=== PATIENT | male | born 1960 | race Two or more races ===

== ENCOUNTER 2022-07-18 21:01 | Inpatient (IN) | payer MEDICAID ==
[~2022-07-18] VITALS: Ht 175.3 cm; Wt 72.6 kg
--- NOTE | 2022-07-18 23:30 | NUR ---
MS RN NOTES PATIENT DIRECT ADMIT FROM [facility] RECEIVED REPORT FROM JEROME WILLIAMSON; PER CLAY, PATIENT IS STABLE FOR TRANSFER; VSS; UPON ARRIVAL TO UNIT VIA GURNEY; ACCOMPANIED BY 2 EMT; PATIENT A/0X4, HEBREW AND SYRIAC SPEAKER; ABLE TO VERBALIZE NEEDS; PER PATIENT, HE HAS HOME HEALTH NURSE AND SHE RECOMMENDED PATIENT BE SEEN IN ER FOR FURTHER EVALUATION OF BILATERAL FOOT ULCERS; PATIENT COMPLIED AND WENT TO ER EARLIER TODAY; BREATHING EVEN AND UNLABORED; NO SOB NOTED, NO DISTRESS NOTED; PATIENT TOLERATING ROOM AIR WELL; PATIENT DENIES PAIN; SKIN ASSESSMENTS DONE, PICTURES TAKEN AND FILED IN PATIENT BINDER; BILATERAL FOOT ULCERS PROTECTED WITH MEPILEX AND WRAPPED IN KERLIX; PER PATIENT HE TAKES METFORMIN 500MG PO BID; MED HX OBTAINED FROM PATIENT AND PREVIOUS CHART; L WRIST #20G INTACT AND PATENT, FLUSHING WELL; NO S/S OF REDNESS OR INFILTRATION NOTED; PT USED URINAL, YELLOW/TEA COLORED URINE, OUTPUT OF 450CC; PATIENT ORIENTED TO STAFF AND TO UNIT, SAFETY PRECAUTIONS IMPLEMENTED; BED LOCKED IN LOW POSITION; SIDE RAILSX2, CALL LIGHT WITHIN EASY REACH; BED ALARM ON, AWAITING MD ORDERS
[2022-07-19] VITALS: BP 112/68
[2022-07-19] MEDS ORDERED: DEXTROSE 50%-WATER 50 ML DISP.SYRIN IV PRN
[2022-07-19] MEDS ORDERED: ACETAMINOPHEN 325 MG TABLET PO PRN
[2022-07-19] MEDS ORDERED: ONDANSETRON HCL/PF 4 MG/2 ML VIAL IVP PRN
--- NOTE | 2022-07-19 | NUR ---
MS RN NOTES SPOKE WITH PHARMACY TO VERIFY MED ORDERS; PER PHARMACY WILL GET TO IT SOON POSSIBLE; PER PHARMACY UNABLE TO VERIFY LOVENOX, WILL HAVE PHARMACY IN AM DOSE;
--- NOTE | 2022-07-19 00:30 | NUR ---
MS RN NOTES MD AT BEDSIDE WITH PATIENT, AWAITING ORDERS
[2022-07-19 00:43] VITALS: BP 104/65
[2022-07-19] MEDS ORDERED: VANCOMYCIN 1 GM in IV D5W 250ml IV ONE (01:00)
[2022-07-19 01:48] LABS: CREATININE 0.8 mg/dL (0.6-1.3); POTASSIUM 3.5 mmol/L (3.5-5.1)
--- NOTE | 2022-07-19 02:08 | NUR ---
MS RN NOTES 0100 SCHEDULED VANCO NON-ADMINISTERED D/T PATIENT RECEIVING DOSE AT FAN 1800 PRIOR TO PATIENT BEING TRANSFERRED TO [facility] [place]; PER WILDLIFE CONSERVATION PROFESSOR, DO NOT ADMINISTER DOSE; VANCO TO START [id number]. WILL INFORM DAY SHIFT
[2022-07-19] MEDS: ENOXAPARIN SODIUM 40 MG/0.4 ML DISP.SYRIN SQ SCH ×2 (02:21→21:19)
[2022-07-19 06:12] LABS: BASOPHILS % (AUTO) 0.4 % (0.0-2.0); EOSINOPHILS % (AUTO) 0.2 % (0.0-6.0); HEMATOCRIT 32 % (39-51); HEMOGLOBIN 10.9 g/dL (13.5-17.5); LYMPHOCYTES # (AUTO) 0.7 K/uL (0.8-4.8); LYMPHOCYTES % (AUTO) 10.6 % (20.0-44.0); MEAN CORPUSCULAR HGB CONC 34 g/dl (31.0-36.0); MEAN CORPUSCULAR VOLUME 85 fL (80-96); MONOCYTES # (AUTO) 0.6 K/uL (0.1-1.30); MONOCYTES % (AUTO) 7.8 % (2.0-12.0); NEUTROPHILS # (AUTO) 5.7 K/uL (1.8-8.9); PLATELET COUNT (AUTO) 153 K/uL (150-450); RED BLOOD CELL COUNT(AUTO) 3.78 MIL/uL (4.5-6.0)
[2022-07-19] MEDS: BLOOD SUGAR DIAGNOSTIC 1 EACH STRIP IN SCH ×4 (06:39→21:32)
[2022-07-19] MEDS: INSULIN REGULAR, HUMAN 100 UNIT/ML 3 ML VIAL SQ PRN ×4 (06:40→21:36)
[2022-07-19 06:42] LABS: CALCIUM, SERUM 8.3 mg/dL (8.5-10.1); CREATININE 0.8 mg/dL (0.6-1.3); MAGNESIUM 2.4 mg/dL (1.8-2.4); PHOSPHORUS 2.3 mg/dL (2.5-4.9); POTASSIUM 3.7 mmol/L (3.5-5.1)
--- NOTE | 2022-07-19 07:03 | NUR ---
MS RN CLOSING NOTES PATIENT RESTING IN BED COMFORTABLY; A/OX4, ST LUCIAN/SCOTTISH SPEAKING; PATIENT ABLE TO MAKE NEEDS KNOWN; BREATHING EVEN AND UNLABORED; NO SOB NOTED; TOLERATING ROOM AIR WELL; PATIENT DENIES PAIN, NO DISTRESS NOTED; L WRIST #20G S/L INTACT AND PATENT, FLUSHING WELL; NO S/S OF REDNESS OR INFILTRATION NOTED; ALL NEEDS RENDERED; SAFETY PRECAUTIONS IMPLEMENTED; BED LOCKED IN LOW POSITION; SIDE RAILSX2, CALL LIGHT WITHIN EASY REACH; WILL ENDORSE ARIADNE TO ONCOMING SHIFT
--- NOTE | 2022-07-19 07:23 | NUR ---
RN OPENING NOTES RECEIVED PATIENT IN BED, AWAKE, A/O X4, VERBALLY RESPONSIVE. NO SIGNS OF ACUTE DISTRESS NOTED. DENIES ANY PAIN OR DISCOMFORT AT THIS TIME. STABLE ON ROOM AIR, NO SOB NOTED, BREATHING EVEN AND UNLABORED. NOTED WITH IV ACCESS ON LEFT WRIST #20G, INTACT AND PATENT, SALINE LOCKED. SAFETY MEASURE IN PLACE, BED IN LOWEST AND LOCKED POSITION, SIDE RAILS UP X2, CALL LIGHT PLACED WITHIN EASY REACH. WILL CONTINUE TO MONITOR PATIENT.
--- NOTE | 2022-07-19 08:58 | NUR ---
WOUND CARE CONSULT: PT PRESENTS WITH SIGNIFICANT ULCERS TO BILATERAL LOWER EXTREMITIES, PRESENT ON ADMISSION. DPM CONSULT CALLED TO DR THORPE. PT IS INDEPENDENT WITH BED MOBILITY AND IS CONTINENT. DISCUSSED SKIN PROTECTION WITH NURSING STAFF. MD IN AGREEMENT WITH PLAN OF CARE.
[2022-07-19] MEDS ORDERED: METF-440 PO (10:14)
[2022-07-19] MEDS ORDERED: INSU100V30 SQ (10:14)
[2022-07-19] MEDS: PIPERACILLIN /TAZOBACTAM 3.375 G in IV D5W 50 ML IV SCH ×3 (11:54→23:34)
[2022-07-19] MEDS: VANCOMYCIN 1.25 GM in IV D5W 250 ML IV SCH (12:43)
--- NOTE | 2022-07-19 14:10 | NUR ---
MRI CONSENT SIGNED BY PATIENT. MRI STAFF PICKED UP PATIENT FROM MED/SURG RM [id number] AT 1406 FOR PROCEDURE.
--- NOTE | 2022-07-19 15:10 | NUR ---
RETURNED FROM MRI AT 1510.
[2022-07-19] MEDS ORDERED: K PHOS NEUTRAL 250 MG TABLET PO ONE (16:00)
[2022-07-19] MEDS ORDERED: VANCOMYCIN 1 GM in IV D5W 250 ML IV SCH (18:00)
--- NOTE | 2022-07-19 18:42 | NUR ---
RN CLOSING NOTES PATIENT LYING IN BED VISITING WITH FAMILY. TOLERATED ALL MEDICATIONS AND IVF WITHOUT DIFFICULTY. DENIES ANY PAIN OR DISCOMFORT. STABLE ON ROOM AIR, NO SOB NOTED, BREATHING EVEN AND UNLABORED. IV ACCESS TO LEFT WRIST #20G, INTACT AND PATENT, SALINE LOCKED. SAFETY MEASURES IN PLACE, BED IN LOWEST AND LOCKED POSITION, SIDE RAILS UP X2, CALL LIGHT PLACED WITHIN EASY REACH. WILL ENDORSE TO NEXT SHIFT FOR CONTINUITY OF CARE.
--- NOTE | 2022-07-19 19:02 | NUR ---
RN NOTE RECEIVED NEW ORDER FROM DR. LEW. PATIENT WILL HAVE DEBRIDEMENT OF SOFT TISSUE BOTH HEELS IN AM @0730. PATIENT WILL NEED TO BE NPO POST MIDNIGHT. CONSENTS OBTAINED FROM PATIENT, PLACED IN CHART.
--- NOTE | 2022-07-19 19:30 | NUR ---
MS RN OPENING NOTES RECEIVED PT LYING IN BED AWAKE. A/O X4. NO ACUTE DISTRESS NOTED. NO C/O PAIN AT THIS TIME. BREATHING EVEN AND NON-LABORED ON ROOM AIR. HAS LEFT WRIST IV ACCESS #20G AND SALINE LOCKED. NO SIGNS OF INFILTRATION NOTED. BILATERAL HEEL DRESSING C/D/I. SAFETY MEASURES MAINTAINED: BED LOW AND LOCKED, SIDE RAILS UP X2, CALL LIGHT WITHIN REACH. WILL CONTINUE PLAN OF CARE.
[2022-07-19 20:00] VITALS: BP 107/73
--- NOTE | 2022-07-19 21:04 | NUR ---
MS RN NOTES HOLD CLAUDIA PER DR. LEW. SCHEDULED FOR DEBRIDEMENT TOMORROW AM.
[2022-07-20] MEDS: VANCOMYCIN 1.25 GM in IV D5W 250 ML IV SCH ×2 (00:21→14:17)
[2022-07-20] MEDS: PIPERACILLIN /TAZOBACTAM 3.375 G in IV D5W 50 ML IV SCH ×4 (05:18→23:56)
[2022-07-20 06:22] LABS: CALCIUM, SERUM 8.4 mg/dL (8.5-10.1); CREATININE 0.8 mg/dL (0.6-1.3); MAGNESIUM 2.1 mg/dL (1.8-2.4); PHOSPHORUS 3.5 mg/dL (2.5-4.9); POTASSIUM 3.5 mmol/L (3.5-5.1)
[2022-07-20] MEDS ORDERED: FENTANYL PF 250MCG/5ML AMPUL ONE (06:45)
[2022-07-20] MEDS ORDERED: MIDAZOLAM HCL 2 MG/2ML VIAL ONE (06:46)
[2022-07-20] MEDS ORDERED: HYDROMORPHONE INJ 2 MG/ML DISP.SYRIN ONE (06:46)
[2022-07-20] MEDS ORDERED: SUCCINYLCHOLINE CHLORIDE 20 MG/ML VIAL ONE (06:47)
[2022-07-20] MEDS ORDERED: FAMOTIDINE/PF INJ 20 MG/2 ML VIAL IV ONE (06:47)
[2022-07-20] MEDS: INSULIN REGULAR, HUMAN 100 UNIT/ML 3 ML VIAL SQ PRN ×4 (07:01→22:38)
[2022-07-20] MEDS: BLOOD SUGAR DIAGNOSTIC 1 EACH STRIP IN SCH ×4 (07:01→22:37)
--- NOTE | 2022-07-20 07:02 | NUR ---
MS RN NOTES PT IS FOR DEBRIDEMENT OF BILATERAL HEELS AND HAS BEEN NPO SINCE 12AM. PER JOSÉ LUIS CHRISTOPHER, DO NOT ADMINISTER INSULIN.
--- NOTE | 2022-07-20 07:03 | NUR ---
MS RN CLOSING NOTES PT LYING IN BED ASLEEP, EASY TO AROUSE. A/O X4. NO SOB OR NOTED. TOLERATING ROOM AIR WELL. NO C/O PAIN OR DISCOMFORT. HAS LEFT WRIST IV ACCESS #20G AND SALINE LOCKED. INTACT, PATENT AND FLUSHING WELL. BILATERAL HEEL DRESSING C/D/I. ALL NEEDS ATTENDED. PRE-OP CHECKLIST DONE. SAFETY MEASURES IN PLACED: BED LOW AND LOCKED, SIDE RAILS UP X2, CALL LIGHT WITHIN REACH. WILL ENDORSE TO AM SHIFT FOR ARIADNE.
[2022-07-20] MEDS ORDERED: ANESTHESIA TRAY IN PYXIS 1 EA TRAY MC ONE (07:06)
[2022-07-20] MEDS ORDERED: VANCOMYCIN 1 GM VIAL ONE (07:07)
[2022-07-20 07:13] LABS: BASOPHILS % (AUTO) 0.5 % (0.0-2.0); EOSINOPHILS % (AUTO) 0.5 % (0.0-6.0); HEMATOCRIT 34 % (39-51); HEMOGLOBIN 11.3 g/dL (13.5-17.5); LYMPHOCYTES # (AUTO) 0.8 K/uL (0.8-4.8); MEAN CORPUSCULAR HGB CONC 33 g/dl (31.0-36.0); MEAN CORPUSCULAR VOLUME 86 fL (80-96); MONOCYTES # (AUTO) 0.5 K/uL (0.1-1.30); MONOCYTES % (AUTO) 7.1 % (2.0-12.0); NEUTROPHILS # (AUTO) 5.5 K/uL (1.8-8.9); NEUTROPHILS % (AUTO) 79.9 % (43.0-81.0); PLATELET COUNT (AUTO) 177 K/uL (150-450); RED BLOOD CELL COUNT(AUTO) 3.99 MIL/uL (4.5-6.0); WHITE BLOOD COUNT (AUTO) 6.8 K/uL (4.3-11.0)
[2022-07-20] MEDS ORDERED: GELATIN SPONGE,ABSORBABLE 1 EA SPONGE TP ONE (08:55)
[2022-07-20 10:00] VITALS: BP 120/65
--- NOTE | 2022-07-20 19:30 | NUR ---
RN OPENING NOTES RECEIVED PT AWAKE, WITH FAMILY AT BEDSIDE. AOx4, ABLE TO MAKE NEEDS KNOWN. NO DISTRESS NOTED. QUESTIONS ANSWERED. PT MADE AWARE OF BEING NPO AFTER MIDNIGHT. ALL NEEDS MET AT THIS TIME.
[2022-07-20 20:00] VITALS: BP 94/61
[2022-07-20] MEDS: INSULIN GLARGINE, 100 UNIT/ML CARTRIDGE SQ SCH (21:24)
[2022-07-20] MEDS: ENOXAPARIN SODIUM 40 MG/0.4 ML DISP.SYRIN SQ SCH (21:24)
[2022-07-21] MEDS: VANCOMYCIN 1.25 GM in IV D5W 250 ML IV SCH ×2 (02:25→13:49)
[2022-07-21] MEDS: PIPERACILLIN /TAZOBACTAM 3.375 G in IV D5W 50 ML IV SCH ×3 (06:17→17:23)
[2022-07-21 06:30] LABS: BASOPHILS % (AUTO) 0.3 % (0.0-2.0); EOSINOPHILS % (AUTO) 0.7 % (0.0-6.0); HEMATOCRIT 28 % (39-51); HEMOGLOBIN 9.3 g/dL (13.5-17.5); LYMPHOCYTES # (AUTO) 0.7 K/uL (0.8-4.8); LYMPHOCYTES % (AUTO) 7.7 % (20.0-44.0); MEAN CORPUSCULAR HGB CONC 34 g/dl (31.0-36.0); MEAN CORPUSCULAR VOLUME 86 fL (80-96); MONOCYTES # (AUTO) 0.5 K/uL (0.1-1.30); MONOCYTES % (AUTO) 5.4 % (2.0-12.0); NEUTROPHILS % (AUTO) 85.9 % (43.0-81.0); PLATELET COUNT (AUTO) 162 K/uL (150-450); RED BLOOD CELL COUNT(AUTO) 3.23 MIL/uL (4.5-6.0); WHITE BLOOD COUNT (AUTO) 9.3 K/uL (4.3-11.0)
[2022-07-21] MEDS: BLOOD SUGAR DIAGNOSTIC 1 EACH STRIP IN SCH ×4 (06:31→22:45)
[2022-07-21] MEDS: INSULIN REGULAR, HUMAN 100 UNIT/ML 3 ML VIAL SQ PRN ×4 (06:31→22:52)
--- NOTE | 2022-07-21 06:45 | NUR ---
RN CLOSING NOTES PT IN BED, ASLEEP, AWAKENS TO VERBAL STIMULI. AOx4, ABLE TO MAKE NEEDS KNOWN. NO DISTRESS NOTED. PT KEPT NPO POST MIDNIGHT. ALL CONSENTS SIGNED. ALL ORDERS CARRIED OUT. ALL NEEDS MET. PT KEPT CLEAN AND DRY. WILL ENDORSE TO ONCOMING SHIFT FOR ARIADNE.
[2022-07-21 07:14] LABS: CREATININE 0.9 mg/dL (0.6-1.3); MAGNESIUM 2.2 mg/dL (1.8-2.4); POTASSIUM 3.5 mmol/L (3.5-5.1)
--- NOTE | 2022-07-21 07:30 | NUR ---
MS RN OPENING NOTES RECEIVED PT LYING IN BED AWAKE. A/O X4. NO ACUTE DISTRESS NOTED. NO C/O PAIN AT THIS TIME. BREATHING EVEN AND NON-LABORED ON ROOM AIR. CHARAN IV ACCESS #20G INTACT AND SALINE LOCKED. NO SIGNS OF INFILTRATION NOTED. PATIENT NPO FOR ABDOMINAL ANGIOGRAM. IT WILL BE DONE AROUND 0900 AM.BILATERAL HEEL DRESSING C/D/I. SAFETY MEASURES MAINTAINED: BED LOW AND LOCKED, SIDE RAILS UP X2, CALL LIGHT WITHIN REACH. WILL CONTINUE TO MONITOR.
[2022-07-21 07:50] LABS: ALBUMIN 1.9 g/dL (3.4-5.0); BILIRUBIN,TOTAL 0.4 mg/dL (0.2-1.0); TOTAL PROTEIN, SERUM 6.1 g/dL (6.4-8.2)
[2022-07-21 08:23] VITALS: BP 118/64
[2022-07-21] MEDS ORDERED: LIDOCAINE 1% INJ 50 ML MDV IJ ONE (09:04)
[2022-07-21] MEDS ORDERED: IODIXANOL 320MG/ML 100 ML IV ONE ×2 (09:05→10:18)
[2022-07-21] MEDS ORDERED: MIDAZOLAM HCL 2 MG/2ML VIAL ONE (09:18)
[2022-07-21] MEDS ORDERED: FENTANYL PF 100MCG/2ML AMPUL ONE (09:18)
[2022-07-21] MEDS ORDERED: NITROGLYCERIN IN 5 % DEXTROSE 0 ML IV ONE (09:18)
[2022-07-21] MEDS ORDERED: IV SET PRIMARY PUMP SET 1 EA INFUS.SET MC ONE (10:10)
[2022-07-21] MEDS ORDERED: IV NS 0.9% 1,000 ML ONE (10:10)
--- NOTE | 2022-07-21 11:30 | NUR ---
RN NOTES PATIENT BACK FROM AORTAGRAM. THE DRESSING ON THE LEFT GROIN INTACT. NO BLEEDING NOTED. NO PAIN NOTED. NO DISTRESS NOTED. PATUIENT TOLERATED THE TEST WELL.
[2022-07-21 16:28] VITALS: BP 118/69
--- NOTE | 2022-07-21 19:30 | NUR ---
MS RN OPENING NOTES RECEIVED PATIENT IN BED: AWAKE, ALERT AND ORIENTED X 4. BREATHING EVEN AND NONLABORED. ON ROOM AIR; TOLERATING WELL. NOT IN ANY FORM OF RESPIRATORY DISTRESS. WITH IV ACCESS ON RIGHT UPPER ARM 20g AND LEFT HAND 18g; BOTH ARE PATENT, INTACT AND SALINE LOCKED. ABLE TO MAKE NEEDS KNOWN. FALL AND SAFETY MEASURES IMPLEMENTED: CALL LIGHT AND TABLE WITHIN REACH, SIDE RAILS UP X 2, BED IN LOWEST LOCKED POSITION. WILL CONTINUE TO MONITOR
--- NOTE | 2022-07-21 19:30 | NUR ---
MS RN CLOSING NOTES PT LYING IN BED AWAKE. A/O X4. NO ACUTE DISTRESS NOTED. NO C/O PAIN AT THIS TIME. BREATHING EVEN AND NON-LABORED ON ROOM AIR. CHARAN IV ACCESS #20G AND LEFT HAND JUAN LUIS 18 INTACT AND SALINE LOCKED. NO SIGNS OF INFILTRATION NOTED. PATIENT TOLERATED ABDOMINAL ANGIOGRAM. NO BLEEDING NOTED ON THE DRESSING SIDE AT THE LEFT GROIN AREA.BILATERAL HEEL DRESSING C/D/I. ALL DUE MEDS GIVEN ORDERED. ALL SAFETY MEASURES MAINTAINED: BED LOW AND LOCKED, SIDE RAILS UP X2, CALL LIGHT WITHIN REACH. WILL ENDORSE FOR ARIADNE.
[2022-07-21 20:00] VITALS: BP 111/58
[2022-07-21] MEDS: ENOXAPARIN SODIUM 40 MG/0.4 ML DISP.SYRIN SQ SCH ×2 (22:00→22:35)
[2022-07-21] MEDS: INSULIN GLARGINE, 100 UNIT/ML CARTRIDGE SQ SCH (22:49)
[2022-07-22] MEDS: PIPERACILLIN /TAZOBACTAM 3.375 G in IV D5W 50 ML IV SCH ×4 (01:07→17:13)
[2022-07-22] MEDS: VANCOMYCIN 1.25 GM in IV D5W 250 ML IV SCH ×3 (01:42→13:31)
--- NOTE | 2022-07-22 06:00 | NUR ---
RN NOTES SECURED CONSENT FOR WOUND DEBRIDEMENT ON BILATERAL HEELS.
[2022-07-22] MEDS: BLOOD SUGAR DIAGNOSTIC 1 EACH STRIP IN SCH ×4 (06:31→22:04)
[2022-07-22 07:05] LABS: CALCIUM, SERUM 8.4 mg/dL (8.5-10.1); CREATININE 0.8 mg/dL (0.6-1.3); POTASSIUM 3.8 mmol/L (3.5-5.1)
--- NOTE | 2022-07-22 07:15 | NUR ---
MS RN CLOSING NOTES PATIENT IN BED: AWAKE, A/O X 4. BREATHING EVEN AND NONLABORED. STABLE ON ROOM AIR. NOT IN ANY FORM OF RESPIRATORY DISTRESS. WITH IV ACCESS ON CHARAN 20g AND LEFT HAND 18g; BOTH ARE PATENT, INTACT AND SALINE LOCKED. ALL NEEDS MET. FALL AND SAFETY MEASURES MAINTAINED: CALL LIGHT AND TABLE WITHIN REACH, SIDE RAILS UP X 2, BED IN LOWEST LOCKED POSITION. ENDORSED TO TERRY CANO FOR ARIADNE.
--- NOTE | 2022-07-22 07:30 | NUR ---
MS RN OPENING NOTES: RECEIVED PATIENT IN BED AWAKE A/O X 4 AND ABLE TO VERBALIZED NEEDS. NO SOB OR CARDIAC DISTRESS NOTED, ON ROOM AIR AND TOLERATING WELL.PATIENT NOTED WITH CHARAN G#20 PATENT AND INTACT AND SALINE LOCKED. ON NPO EXCEPT MEDS. SAFETY PRECAUTIONS MAINTAINED: BED LOCKED AND IN LOWEST POSITION, SIDE RAILS UP X2. CALL LIGHT IN EASY REACH. KEPT RESTED AND COMFORTABLE. WILL MONITOR ACCORDINGLY.
[2022-07-22 08:00] VITALS: BP 115/66
[2022-07-22] MEDS ORDERED: LIDOCAINE 1% INJ 50 ML MDV IJ ONE (10:04)
[2022-07-22] MEDS ORDERED: BUPIVACAINE 0.25% 75 MG/30 ML VIAL ONE (10:04)
[2022-07-22] MEDS ORDERED: ANESTHESIA TRAY IN PYXIS 1 EA TRAY MC ONE (10:04)
--- NOTE | 2022-07-22 12:07 | NUR ---
RN NOTES: BS 318 MG/DL HOLD INSULIN PATIENT ON NPO.
[2022-07-22] MEDS ORDERED: ROCURONIUM BROMIDE 50 MG/5 ML ONE (14:47)
[2022-07-22] MEDS ORDERED: FENTANYL PF 100MCG/2ML AMPUL ONE (14:47)
[2022-07-22] MEDS ORDERED: INSULIN REGULAR, HUMAN 100 UNIT/ML 10 ML VIAL ONE (16:20)
[2022-07-22 16:30] VITALS: BP 100/55
--- NOTE | 2022-07-22 16:30 | NUR ---
RN NOTES: S/P BILATERAL HEEL DEBRIDEMENT. RECEIVED PT FROM OPERATING ROOM VIA BED. ACCOMPANIED BY JEROME MARMOLEJO AND ELIZABETH DELUCA. PATIENT ALERT AND ORIENTED X 4, AWAKE AND ABLE TO VERBALIZED NEEDS. RECEIVED POST OP REPORT FROM JEROME MARMOLEJO, JAY CHECKED. 100/56, 96% ON ROOM AIR, RR 18, HR 68, 97.9F POST OP ORDERS : RESUME PRE OP MEDS,OR NURSE FAXED ORDERS. RESUME DIABETIC DIET, FOR NURSING: APPLY HEEL CUSHION BILATERAL HEEL/ FOOT, REINFORCE DRESSING OF STRIKE THROUGH DRAINAGE. ORDERS NOTED AND CARRIED OUT.
[2022-07-22 16:45] VITALS: BP 100/58
[2022-07-22 17:00] VITALS: BP 101/56
[2022-07-22] MEDS: INSULIN REGULAR, HUMAN 100 UNIT/ML 3 ML VIAL SQ PRN ×2 (17:10→22:18)
[2022-07-22 18:00] VITALS: BP 109/59
--- NOTE | 2022-07-22 18:30 | NUR ---
RN NOTES: Patient requested to have probiotics. Informed Dr Morrissey, ordered Culturelle po daily. orders noted and carried out. Patient made aware.
--- NOTE | 2022-07-22 18:54 | NUR ---
MS RN CLOSING NOTES: PATIENT IN BED AWAKE A/O X 4 AND ABLE TO VERBALIZED NEEDS. NO SOB OR CARDIAC DISTRESS NOTED, ON ROOM AIR AND TOLERATING WELL.PATIENT NOTED WITH CHARAN G#20 PATENT AND INTACT AND SALINE LOCKED. S/P WOUND DEBRIDEMENT ON PIERRE HEELS. SAFETY PRECAUTIONS MAINTAINED: BED LOCKED AND IN LOWEST POSITION, SIDE RAILS UP X2. CALL LIGHT IN EASY REACH. KEPT RESTED AND COMFORTABLE. WILL MONITOR ACCORDINGLY. ENDORSED TO NOC SHIFT FOR CONTINUITY OF CARE.
--- NOTE | 2022-07-22 19:30 | NUR ---
RN OPENING NOTE PATIENT IN BED, AWAKE. A/O X 4, ABLE TO MAKE NEEDS KNOWN. PATIENT TOLERATING RA, BREATHING EVEN AND UNLABORED. PATIENT'S BILATERAL FEET DRESSING INTACT. S/P DEBRIDEMENT. NO PAIN AT THIS TIME. SAFETY MEASURES IN PLACE: BED LOCKED AND IN LOWEST POSITION, CALL LIGHT WITHIN REACH, SIDE RAILS UP.
[2022-07-22 20:00] VITALS: BP 78/44
--- NOTE | 2022-07-22 20:20 | NUR ---
ROGERIO 77/42, 73/44, MANUAL BP 72/50. NOTIFIED BRYON AIKEN. 1 L NS BOLUS ORDERED. ORDER READ BACK, WILL CARRY OUT.
[2022-07-22] MEDS ORDERED: IV NS 0.9% 1,000 ML IV ONE (20:30)
[2022-07-22 20:32] LABS: BASOPHILS % (AUTO) 0.2 % (0.0-2.0); EOSINOPHILS % (AUTO) 0.6 % (0.0-6.0); HEMATOCRIT 30 % (39-51); HEMOGLOBIN 9.9 g/dL (13.5-17.5); LYMPHOCYTES # (AUTO) 0.7 K/uL (0.8-4.8); LYMPHOCYTES % (AUTO) 8.2 % (20.0-44.0); MEAN CORPUSCULAR HGB CONC 33 g/dl (31.0-36.0); MEAN CORPUSCULAR VOLUME 87 fL (80-96); MONOCYTES # (AUTO) 0.3 K/uL (0.1-1.30); MONOCYTES % (AUTO) 3.5 % (2.0-12.0); NEUTROPHILS % (AUTO) 87.5 % (43.0-81.0); PLATELET COUNT (AUTO) 227 K/uL (150-450); RED BLOOD CELL COUNT(AUTO) 3.49 MIL/uL (4.5-6.0); WHITE BLOOD COUNT (AUTO) 9.1 K/uL (4.3-11.0)
[2022-07-22 20:59] LABS: BASOPHILS % (AUTO) 0.2 % (0.0-2.0); EOSINOPHILS % (AUTO) 1.7 % (0.0-6.0); HEMATOCRIT 25 % (39-51); HEMOGLOBIN 8.1 g/dL (13.5-17.5); LYMPHOCYTES # (AUTO) 0.7 K/uL (0.8-4.8); LYMPHOCYTES % (AUTO) 10.5 % (20.0-44.0); MEAN CORPUSCULAR HGB CONC 33 g/dl (31.0-36.0); MEAN CORPUSCULAR VOLUME 85 fL (80-96); MONOCYTES # (AUTO) 0.4 K/uL (0.1-1.30); MONOCYTES % (AUTO) 5.4 % (2.0-12.0); NEUTROPHILS # (AUTO) 5.6 K/uL (1.8-8.9); NEUTROPHILS % (AUTO) 82.2 % (43.0-81.0); PLATELET COUNT (AUTO) 200 K/uL (150-450); RED BLOOD CELL COUNT(AUTO) 2.88 MIL/uL (4.5-6.0); WHITE BLOOD COUNT (AUTO) 6.8 K/uL (4.3-11.0)
--- NOTE | 2022-07-22 21:30 | NUR ---
BP RECHECKED 78/45, MANUAL BP 76/46. MD MADE AWARE OF STAT CBC RESULT AND BP RECHECK. ORDERED TO TRANSFUSE 1 UNIT PRBC.
[2022-07-22] MEDS: ENOXAPARIN SODIUM 40 MG/0.4 ML DISP.SYRIN SQ SCH (22:00)
[2022-07-22] MEDS ORDERED: INSULIN GLARGINE, 100 UNIT/ML CARTRIDGE SQ SCH (22:00)
--- NOTE | 2022-07-22 22:05 | NUR ---
RN NOTE PATIENT'S BS 179 MG/DL, 3 UNITS INSULIN COVERAGE GIVEN. SNACKS PROVIDED.
[2022-07-23] VITALS (8 sets, daily range): BP systolic 82–114; BP diastolic 48–68
--- NOTE | 2022-07-23 00:17 | NUR ---
BLOOD TRANSFUSION INITIATED. VSS 82/48, 69 HR. AFEBRILE AT THIS TIME 97.7. RN AT BEDSIDE WILL RECHECK AFTER 15 MIN.
--- NOTE | 2022-07-23 00:33 | NUR ---
PATIENT REMAINS STABLE. ASYMPTOMATIC HYPOTENSION. LUNG SOUNDS CLEAR UPON AUSCULTATION, 02 94-95%. NO BLOOD TRANSFUSION REACTION/ADVERSE EFFECT. WILL CONTINUE TO MONITOR PATIENT FOR ANY REACTIONS.
[2022-07-23] MEDS: PIPERACILLIN /TAZOBACTAM 3.375 G in IV D5W 50 ML IV SCH ×5 (00:36→23:27)
[2022-07-23] MEDS: VANCOMYCIN 1.25 GM in IV D5W 250 ML IV SCH ×2 (01:32→12:12)
--- NOTE | 2022-07-23 03:25 | NUR ---
ENDED BLOOD TRANSFUSION. VSS STABLE NO ADVERSE REACTION FROM BLOOD PRODUCT.
--- NOTE | 2022-07-23 06:10 | NUR ---
RN NOTE BS 62 MG/DL, PATIENT ASYMPTOMATIC FOR HYPOGLYCEMIA. PATIENT STILL ALERT, A/O X 4 AND FOLLOWS COMMANDS. GAVE PATIENT JUICES AND PUDDING PER PATIENT'S PREFERENCE TO BRING UP BS. WILL RECHECK AT A LATER TIME.
[2022-07-23] MEDS: INSULIN REGULAR, HUMAN 100 UNIT/ML 3 ML VIAL SQ PRN ×4 (06:37→22:52)
[2022-07-23] MEDS: BLOOD SUGAR DIAGNOSTIC 1 EACH STRIP IN SCH ×4 (06:37→22:37)
--- NOTE | 2022-07-23 07:00 | NUR ---
MS RN OPENING NOTES PATIENT LAYING IN BED, A/O X 4, ABLE TO MAKE NEEDS KNOWN, TOLERATING WELL ON ROOM AIR WITH NO S/S RESPIRATORY DISTRESS. NO COMPLAINTS OF PAIN OR DISCOMFORT. DRESSINGS ON BILATERAL HEELS C/D/I . CHARAN # 20 G SL AND L WRIST # 20 G SL CLEAN, INTACT, AND FLUSHING WELL. SAFETY MEASURES IN PLACE: BED IN LOWEST LOCKED POSITION, SIDE RAILS UP X 2, CALL LIGHT WITHIN REACH. WILL CONTINUE TO MONITOR.
--- NOTE | 2022-07-23 07:06 | NUR ---
RN CLOSING NOTE PATIENT IN BED, EYES CLOSED, EASILY ROUSED. A/O X 4, ABLE TO MAKE NEEDS KNOWN. PATIENT TOLERATING RA, BREATHING EVEN AND UNLABORED. PATIENT'S BS NOW 109 MG/DL AFTER SNACKS. PATIENT'S BILATERAL FEET DRESSING INTACT. S/P DEBRIDEMENT. NO STRIKE TRHOUGH SOILING/BLEEDING NOTED. NO PAIN AT THIS TIME. CHARAN 20 G PATENT AND INTACT WELL L WRIST 20 G. SAFETY MEASURES IN PLACE: BED LOCKED AND IN LOWEST POSITION, CALL LIGHT WITHIN REACH, SIDE RAILS UP. ALL NEEDS MET AND ATTENDED. ALL ORDERS CARRIED OUT. WILL ENDORSE TO DAY SHIFT NURSE FOR ARIADNE.
[2022-07-23 07:18] LABS: CALCIUM, SERUM 8.2 mg/dL (8.5-10.1); CREATININE 0.9 mg/dL (0.6-1.3); MAGNESIUM 2.1 mg/dL (1.8-2.4); PHOSPHORUS 3.1 mg/dL (2.5-4.9); POTASSIUM 3.8 mmol/L (3.5-5.1)
[2022-07-23 07:27] LABS: BASOPHILS % (AUTO) 0.3 % (0.0-2.0); EOSINOPHILS % (AUTO) 1.3 % (0.0-6.0); HEMATOCRIT 31 % (39-51); HEMOGLOBIN 10.6 g/dL (13.5-17.5); LYMPHOCYTES # (AUTO) 0.6 K/uL (0.8-4.8); LYMPHOCYTES % (AUTO) 7.9 % (20.0-44.0); MEAN CORPUSCULAR HGB CONC 34 g/dl (31.0-36.0); MEAN CORPUSCULAR VOLUME 86 fL (80-96); MONOCYTES # (AUTO) 0.5 K/uL (0.1-1.30); MONOCYTES % (AUTO) 5.8 % (2.0-12.0); NEUTROPHILS # (AUTO) 6.7 K/uL (1.8-8.9); NEUTROPHILS % (AUTO) 84.7 % (43.0-81.0); PLATELET COUNT (AUTO) 229 K/uL (150-450); RED BLOOD CELL COUNT(AUTO) 3.64 MIL/uL (4.5-6.0); WHITE BLOOD COUNT (AUTO) 7.8 K/uL (4.3-11.0)
[2022-07-23] MEDS: LACTOBACILLUS RHAMNOSUS GG 1 EACH CAP.SPRINK PO SCH (08:48)
--- NOTE | 2022-07-23 19:35 | NUR ---
MS RN OPENING NOTES RECEIVED PATIENT IN BED; AWAKE, ALERT AND ORIENTED X 4. BREATHING EVEN AND NONLABORED. ON ROOM AIR; TOLERATING WELL. NOT IN ANY FORM OF RESPIRATORY DISTRESS. DENIES ANY PAIN OR DISCOMFORT AT THIS TIME. WITH IV ACCESS ON RIGHT UPPER ARM 20g AND LEFT WRIST 20g. WITH PICC LINE ON RIGHT FOREARM 18g; ALL ARE PATENT, INTACT AND SALINE LOCKED. NO INFILTRATION NOTED. ABLE TO MAKE NEEDS KNOWN. SAFETY PRECAUTIONS IMPLEMENTED: CALL LIGHT AND TABLE WITHIN EASY REACH, SIDE RAILS UP X 2, BED IN LOWEST LOCKED POSITION. WILL CONTINUE PLAN OF CARE.
--- NOTE | 2022-07-23 22:00 | NUR ---
RN NOTES S/P WOUND DEBRIDEMENT DONE ON 07/22/[address] THORPE; REINFORCE DRESSING PER ORDER. NO PICTURES TAKEN. CN ELAINE AWARE.
[2022-07-23] MEDS: ENOXAPARIN SODIUM 40 MG/0.4 ML DISP.SYRIN SQ SCH (22:29)
[2022-07-23] MEDS: INSULIN GLARGINE, 100 UNIT/ML CARTRIDGE SQ SCH (22:44)
[2022-07-24] MEDS: VANCOMYCIN 1.25 GM in IV D5W 250 ML IV SCH (01:45)
[2022-07-24] MEDS: PIPERACILLIN /TAZOBACTAM 3.375 G in IV D5W 50 ML IV SCH (05:27)
[2022-07-24] MEDS: BLOOD SUGAR DIAGNOSTIC 1 EACH STRIP IN SCH ×4 (06:33→22:27)
[2022-07-24] MEDS: INSULIN REGULAR, HUMAN 100 UNIT/ML 3 ML VIAL SQ PRN ×3 (06:37→22:32)
[2022-07-24 06:58] LABS: BASOPHILS % (AUTO) 0.3 % (0.0-2.0); EOSINOPHILS % (AUTO) 1.9 % (0.0-6.0); HEMATOCRIT 32 % (39-51); HEMOGLOBIN 10.5 g/dL (13.5-17.5); LYMPHOCYTES # (AUTO) 0.7 K/uL (0.8-4.8); LYMPHOCYTES % (AUTO) 9.4 % (20.0-44.0); MEAN CORPUSCULAR HGB CONC 33 g/dl (31.0-36.0); MEAN CORPUSCULAR VOLUME 86 fL (80-96); MONOCYTES # (AUTO) 0.5 K/uL (0.1-1.30); MONOCYTES % (AUTO) 6.6 % (2.0-12.0); NEUTROPHILS # (AUTO) 5.7 K/uL (1.8-8.9); NEUTROPHILS % (AUTO) 81.8 % (43.0-81.0); PLATELET COUNT (AUTO) 269 K/uL (150-450); RED BLOOD CELL COUNT(AUTO) 3.68 MIL/uL (4.5-6.0)
--- NOTE | 2022-07-24 07:00 | NUR ---
MS RN CLOSING NOTES PATIENT IN BED; AWAKE, A/O X 4. RESPIRATION EVEN AND NONLABORED. STABLE ON ROOM AIR. IN NO APPARENT DISTRESS. NO C/O PAIN OR DISCOMFORT AT THIS TIME. WITH IV ACCESS ON CHARAN 20g AND LEFT WRIST 20g. PICC LINE ON RFA 18g; ALL ARE PATENT, INTACT AND SALINE LOCKED. ALL NEEDS MET. SAFETY PRECAUTIONS MAINTAINED: CALL LIGHT AND TABLE WITHIN REACH, SIDE RAILS UP X 2, BED IN LOWEST LOCKED POSITION. ENDORSED TO KELLEY CANO FOR ARIADNE.
--- NOTE | 2022-07-24 07:21 | NUR ---
MS RN OPENING NOTES PATIENT LAYING IN BED, A/O X 4, ABLE TO MAKE NEEDS KNOWN, TOLERATING WELL ON ROOM AIR WITH NO S/S RESPIRATORY DISTRESS. NO COMPLAINTS OF PAIN OR DISCOMFORT. DRESSINGS ON BILATERAL HEELS COVERED WITH ELASTIC DRESSING, DRY AND INTACT. WITH CHARAN # 20 G SL AND L WRIST # 20 G SL CLEAN, INTACT, AND FLUSHING WELL. SAFETY MEASURES IN PLACE: BED IN LOWEST LOCKED POSITION, SIDE RAILS UP X 2, CALL LIGHT WITHIN REACH. WILL CONTINUE TO MONITOR.
[2022-07-24 07:31] LABS: CALCIUM, SERUM 8.3 mg/dL (8.5-10.1); CREATININE 0.8 mg/dL (0.6-1.3); MAGNESIUM 2.2 mg/dL (1.8-2.4); PHOSPHORUS 2.3 mg/dL (2.5-4.9); POTASSIUM 3.8 mmol/L (3.5-5.1)
[2022-07-24] MEDS: LACTOBACILLUS RHAMNOSUS GG 1 EACH CAP.SPRINK PO SCH (09:37)
[2022-07-24 10:14] VITALS: BP 132/72
[2022-07-24] MEDS ORDERED: K PHOS NEUTRAL 250 MG TABLET PO ONE (12:00)
[2022-07-24] MEDS ORDERED: PIPERACILLIN /TAZOBACTAM 3.375 G in IV D5W 100 ML IV SCH (13:00)
[2022-07-24] MEDS ORDERED: LACT1CAP72 PO (13:47)
[2022-07-24] MEDS ORDERED: CEFT1VIA15 IV (13:47)
[2022-07-24] MEDS ORDERED: INSU100I30 SQ (13:47)
[2022-07-24] MEDS: CEFTRIAXONE 2 G in IV D5W 100 ML IV SCH (13:54)
--- NOTE | 2022-07-24 16:00 | NUR ---
MS RN NOTE PATIENT FOR DISCHARGE, STILL WAITING FOR CASEMANAGER TO ARRANGE HOME MEDICATIONS.
[2022-07-24 18:11] VITALS: BP 130/79
--- NOTE | 2022-07-24 19:00 | NUR ---
MS RN CLOSING NOTES PATIENT LAYING IN BED, A/O X 4, ABLE TO MAKE NEEDS KNOWN, TOLERATING WELL ON ROOM AIR WITH NO S/S RESPIRATORY DISTRESS. NO COMPLAINTS OF PAIN OR DISCOMFORT. DRESSINGS ON BILATERAL HEELS COVERED WITH ELASTIC DRESSING, DRY AND INTACT. WITH CHARAN # 20 G SL AND L WRIST # 20 G SL CLEAN, INTACT, AND FLUSHING WELL. SAFETY MEASURES IN PLACE: BED IN LOWEST LOCKED POSITION, SIDE RAILS UP X 2, CALL LIGHT WITHIN REACH. ENDORSE TO NEXT SHIFT FOR CONTINUITY OF CARE.
[2022-07-24 20:00] VITALS: BP 153/81
--- NOTE | 2022-07-24 20:00 | NUR ---
RN OPENING NOTE PATIENT AWAKE IN BED W/ SON AT BEDSIDE. A/OX4. NO S/S OF DISTRESS, BREATHING WITHOUT DIFFICULTY ON ROOM AIR. RFA PICC #18 INTACT AND PATENT; CHARAN #20 INTACT AND PATENT; L-WRIST #20 SL INTACT AND PATENT. SAFETY MEASURES IN PLACE: BED AT LOWEST POSITION & LOCKED, RAILS UP X2, CALL ALEMAN WITHIN REACH. WILL CONTINUE TO MONITOR PATIENT.
[2022-07-24] MEDS: ENOXAPARIN SODIUM 40 MG/0.4 ML DISP.SYRIN SQ SCH (21:55)
[2022-07-24] MEDS: INSULIN GLARGINE, 100 UNIT/ML CARTRIDGE SQ SCH (22:31)
--- NOTE | 2022-07-25 06:39 | NUR ---
RN CLOSING NOTE PATIENT ASLEEP IN BED. A/OX4. NO S/S OF DISTRESS, BREATHING WITHOUT DIFFICULTY ON ROOM AIR. RFA PICC #18 SL INTACT AND PATENT; CHARAN #20 SL INTACT AND PATENT; L-WRIST #20 SL INTACT AND PATENT. SAFETY MEASURES IN PLACE: BED LOCKED AND AT LOWEST POSITION, RAILS UP X2, CALL ALEMAN WITHIN REACH. WILL ENDORSE TO NEXT SHIFT FOR ARIADNE.
[2022-07-25] MEDS: BLOOD SUGAR DIAGNOSTIC 1 EACH STRIP IN SCH ×3 (06:47→18:01)
[2022-07-25] MEDS: INSULIN REGULAR, HUMAN 100 UNIT/ML 3 ML VIAL SQ PRN ×3 (06:48→18:00)
[2022-07-25 07:20] LABS: CALCIUM, SERUM 8.5 mg/dL (8.5-10.1); CREATININE 0.8 mg/dL (0.6-1.3); PHOSPHORUS 3.2 mg/dL (2.5-4.9)
--- NOTE | 2022-07-25 07:30 | NUR ---
RN Opening Note PT AOx4, able to express his own concerns. No signs of distress and report no discomfort. IV on Right upper arm, no signs of infiltration, no pain on site reported. Patient made aware of care plan and agrees. All safety precautions taken, bed at lowest position, call light and table at bedside. Will continue to monitor throughout shift.
--- NOTE | 2022-07-25 07:30 | NUR ---
RN Opening Note PT AOx4, able to express his own concerns. No signs of distress and report no uncomfort.
[2022-07-25 08:00] VITALS: BP 126/74
[2022-07-25] MEDS: LACTOBACILLUS RHAMNOSUS GG 1 EACH CAP.SPRINK PO SCH (08:42)
[2022-07-25] MEDS ORDERED: BISACODYL SUPP (10 MG) 10 MG/SUPP.RECT SUPP.RECT RC PRN (13:00)
[2022-07-25] MEDS: CEFTRIAXONE 2 G in IV D5W 100 ML IV SCH (13:29)
[2022-07-25] MEDS ORDERED: BISACODYL (5 MG) 5 MG TABLET.DR PO ONE (15:30)
[2022-07-25 16:00] VITALS: BP 142/86
--- NOTE | 2022-07-25 18:40 | NUR ---
pier hand Report PT AO x4, his 2 sons are at bedside. Patient agrees with discharge will follow up with PCP and will seek services with his contracted hospital. Patient states his brother in law is an RN and will be able to provide nursing care at home. Removed IV's Right arm and left wrist. Catheters intact, dressings applied and secured. Patients son educated on importance of wound care and diabetic precautions that patient should be taking. Son is currently in RT school. Sons and patient verbalized understanding and are able to provide teachbcak method. Per CM patient will have IV antibiotics delivered, right upper arm central line will stay in place for antibiotic use. educated patient on importance of keeping line clean, dry and following up with Nurse for line care. All safety precautions taken, son jeffery his own wheelchair from [facility], patient transported to main entrance safely. No incidents to report, all belongings returned to patient Updated wound photos, signed belongings and discharge sheet in patients chart.
== END 2022-07-25 18:40 | disposition home health service (06) | DRG 314 ==
LOC: MED 23:01
PROVIDERS: ADMIT Nurse Practitioner Acute Care; ATTEND Nurse Practitioner Acute Care
PROC: 0QBM0ZZ Excision of Left Tarsal, Open Approach (ICD-10-PCS; principal; 2022-07-20)
PROC: 0QBL0ZZ Excision of Right Tarsal, Open Approach (ICD-10-PCS; 2022-07-20)
PROC: B40DYZZ Plain Radiography of Aorta and Bilateral Lower Extremity Arteries using Other Contrast (ICD-10-PCS; 2022-07-21)
PROC: 0QBM0ZZ Excision of Left Tarsal, Open Approach (ICD-10-PCS; 2022-07-22)
PROC: 0QBL0ZZ Excision of Right Tarsal, Open Approach (ICD-10-PCS; 2022-07-22)
PROC: 30233N1 Transfusion of Nonautologous Red Blood Cells into Peripheral Vein, Percutaneous Approach (ICD-10-PCS; 2022-07-23)
PROC: 02HV33Z Insertion of Infusion Device into Superior Vena Cava, Percutaneous Approach (ICD-10-PCS; 2022-07-23)
PROC: B548ZZA Ultrasonography of Superior Vena Cava, Guidance (ICD-10-PCS; 2022-07-23)
DX: E11.69 Type 2 diabetes mellitus with other specified complication (principal); M86.8X7 Other osteomyelitis, ankle and foot; L03.115 Cellulitis of right lower limb; E83.39 Other disorders of phosphorus metabolism; E83.51 Hypocalcemia; E11.42 Type 2 diabetes mellitus with diabetic polyneuropathy; E87.1 Hypo-osmolality and hyponatremia; E11.621 Type 2 diabetes mellitus with foot ulcer; E11.51 Type 2 diabetes mellitus with diabetic peripheral angiopathy without gangrene; L97.418 Non-pressure chronic ulcer of right heel and midfoot with other specified severity; L97.519 Non-pressure chronic ulcer of other part of right foot with unspecified severity; E11.65 Type 2 diabetes mellitus with hyperglycemia; Z79.4 Long term (current) use of insulin; E87.8 Other disorders of electrolyte and fluid balance, not elsewhere classified; M65.871 Other synovitis and tenosynovitis, right ankle and foot; L97.428 Non-pressure chronic ulcer of left heel and midfoot with other specified severity; S82.892A Other fracture of left lower leg, initial encounter for closed fracture; X58.XXXA Exposure to other specified factors, initial encounter; Y93.9 Activity, unspecified; Y92.009 Unspecified place in unspecified non-institutional (private) residence as the place of occurrence of the external cause; B96.4 Proteus (mirabilis) (morganii) as the cause of diseases classified elsewhere; B95.1 Streptococcus, group B, as the cause of diseases classified elsewhere; L02.611 Cutaneous abscess of right foot; Z20.822 Contact with and (suspected) exposure to COVID-19
CPT/HCPCS: 36415; 71045-TC; 73630-TC; 73721-TC; 75625; 75710-TC; 80048-TC; 80061-TC; 80202-TC; 82040-TC; 82247-TC; 82962-TC; 83605-TC; 83735-TC; 84075-TC; 84100-TC; 84155-TC; 84450-TC; 84460-TC; 85025-TC; 85610-TC; 85652-TC; 85730-TC; 86140-TC; 86803; 86850-TC; 87040-TC; 87070-TC; 87075-TC; 87186-TC; 87806; A4217; A6253; A6403; C1769; C1887; C1894; G0378; G0500; J0330; J0690; J0696; J1100; J1170; J1644; J1650; J1815; J1885; J2250; J2405; J2543; J2704; J2765; J3010; J3370; J3490; J7030; J7040; J7050; J7060; P9016; Q9967